=== PATIENT | male | born 1945 | race Caucasian/White ===

== ENCOUNTER → 2016-11-17 | Outpatient (CLI) | payer MEDICARE | END | disposition home or self-care (01) | LOC: LABWHC1 09:07 | PROVIDERS: ATTEND Internal Medicine Cardiovascular Disease | DX: I25.10 Atherosclerotic heart disease of native coronary artery without angina pectoris (principal) | CPT/HCPCS: 36415; 83704 ==

== ENCOUNTER 2018-12-24 10:44 | Day surgery (SDC) | payer MEDICARE ==
[~2018-12-24 10:44] MED LIST: SODIUM CHLORIDE 0.9% 1,000 ML IV SCH
[2018-12-24 12:01] LABS: Basophils % (A) 1 %; Eosinophils # (A) 0.3 k/uL (0-0.7); Eosinophils % (A) 3 %; HCT 39.5 % (39.0-53.0); HGB 13.1 gm/dL (13.0-17.5); Lymphocytes # (A) 1.4 k/uL (1.0-4.8); Lymphocytes % (A) 19 %; MCH 29.6 pg (25.0-35.0); MCHC 33.3 g/dL (31.0-37.0); Mean Platelet Volume 7.7; Monocytes # (A) 0.4 k/uL (0-1.0); Monocytes % (A) 6 %; Neutrophils % (A) 68 %; Platelet Count 246 k/uL (150-450); RBC 4.44 m/uL (4.30-5.90); RDW 13.3 % (11.5-15.5); WBC 7.3 k/uL (3.8-10.6)
[2018-12-24 12:18] LABS: Calcium 9.4 mg/dL (8.4-10.2); Potassium 4.4 mmol/L (3.5-5.1)
[2018-12-24] MEDS ORDERED: LIDOCAINE 1% INJ 10MG/ML (20 ML MDV) SQ ONE (13:35)
[2018-12-24] MEDS ORDERED: IV FLUID CONTINUATION 1,000 ML IV ONE (13:37)
[2018-12-24] MEDS ORDERED: IOPAMIDOL-370 100ML BTL INJ ONE (13:55)
[2018-12-24] MEDS ORDERED: hydrALAZINE HCL 20 MG/ML 1 ML VIAL ONE (14:13)
[2018-12-24] MEDS ORDERED: SODIUM CHLORIDE 0.9% 1,000 ML IV SCH (14:15)
[2018-12-24] MEDS ORDERED: METOPROLOL TARTRATE 50 MG TAB PO SCH (14:20)
[2018-12-24] MEDS ORDERED: hydrALAZINE HCL 20 MG/ML 1 ML VIAL IVP STA (14:23)
[2018-12-24] MEDS ORDERED: METOPROLOL TARTRATE 25 MG TAB PO SCH (14:30)
--- NOTE | 2018-12-24 14:37 | IR ---
EXAMINATION TYPE: IR angio aortic arch DATE OF EXAM: 12/24/2018 COMPARISON: NONE HISTORY: Carotid stenosis Fluoroscopy support supplied to the referring clinician. See dictated report from vascular surgery, 7.4 minutes fluoroscopy time, 92 intraoperative C-arm images document the procedure
[2018-12-24 16:33] VITALS: RESP 18
[2018-12-24 16:34] VITALS: BMI 23.1
--- NOTE | 2018-12-24 18:40 | LTR ---
December 24, 2018 To: Dr. Kaylah Harman Re: Jg Carrillo (1945) Dear Dr. Harman, Mr. Jg Carrillo underwent an aortic arch and carotid angiogram that revealed critical disease involving the left internal carotid artery. The patient will be scheduled for carotid revascularization, likely with stenting, in the next few weeks. Thank you for allowing us to participate in his care, and please do not hesitate to call if you have any questions or concerns. Sincerely, Gonzales Mai MD MMBRIANA / ALIDAN: [id number] /
[2018-12-24 19:57] VITALS: TEMP 98.4
[2018-12-24 20:08] VITALS: BP 128/83; PULSE 65
--- NOTE | 2018-12-24 20:55 | AN ---
ANGIOGRAPHY REPORT DATE OF SERVICE: 12/24/2018 PERFORMING PHYSICIAN: Gonzales Mai MD, metal base blocker. PROCEDURES PERFORMED: 1. Aortic arch angiogram. 2. Selective bilateral carotid angiogram. INDICATION: This is a pleasant 73-year-old gentleman who sees Dr. Janet Lay in the office as an outpatient with a known history of coronary artery disease, hypertension and dyslipidemia who underwent recently a carotid duplex study which revealed severe disease involving the left internal carotid artery. He was brought today to undergo a carotid angiogram with possible left carotid stenting. APPROACH: Right common femoral artery. COMPLICATIONS: None. LEVEL OF SEDATION: The patient was not given any sedation. PROCEDURE DESCRIPTION: After obtaining informed consent, the patient was brought to the cardiac labor union business representative. The right common femoral artery was cannulated using micropuncture technique. The micropuncture wire passed easily. Then I placed a 5-Saudi Arabian sheath in the right common femoral artery. After that I did an aortic arch angiogram using 5-Saudi Arabian pigtail catheter. Then I did selective bilateral carotid angiogram using JB2 catheters. The procedure was completed without any complication. AORTIC ARCH ANGIOGRAM: The aortic arch angiogram was performed in the [place] projection using a power injection. The aortic arch is a true bovine arch. The arch appeared to have mild disease only. BILATERAL CAROTID ANGIOGRAM: 1. Right carotid system. The right common carotid artery appeared to be angiographically normal. The right internal carotid artery appeared to have mild disease only. The right external carotid artery appeared to have mild disease only. 2. Left carotid system. The left common carotid artery distally just by the bifurcation into right internal and right external has eccentric lesion that appeared to be in the range of 95%. That is involving the left internal carotid artery. CONCLUSION: 1. True bovine arch. 2. Critical disease involving the left internal carotid artery and involving the left common carotid artery as well. POST-PROCEDURE MANAGEMENT: 1. IV hydration. 2. The patient will be scheduled to undergo possible left carotid stenting. 3. Follow up with the patient. MMODL / IJN: [id number] /
[2018-12-24] MEDS ORDERED: ATORVASTATIN 40 MG TAB PO SCH (21:00)
[2018-12-24] MEDS ORDERED: FENOFIBRATE 160 MG TAB PO SCH (21:00)
[2018-12-25] MEDS ORDERED: MULTIVITAMINS, THERA 1 EACH TAB PO SCH (12:00)
== END 2018-12-24 20:08 | disposition home or self-care (01) ==
LOC: CATHCVL 10:44 → 1SOBS 14:30 → CATHCVL 20:08
PROVIDERS: ATTEND Internal Medicine Interventional Cardiology
DX: I65.23 Occlusion and stenosis of bilateral carotid arteries (principal); I25.10 Atherosclerotic heart disease of native coronary artery without angina pectoris; I10 Essential (primary) hypertension; Z95.1 Presence of aortocoronary bypass graft; E78.5 Hyperlipidemia, unspecified; Z87.891 Personal history of nicotine dependence; Z79.82 Long term (current) use of aspirin; Z79.899 Other long term (current) drug therapy
CPT/HCPCS: 36222; 80048; 85025; C1769 ×3; C1894; J0360; J2001; Q9967

== ENCOUNTER → 2019-01-28 | Outpatient (CLI) | payer MEDICARE ==
[2019-01-28 10:50] LABS: HCT 42.6 % (39.0-53.0); HGB 13.7 gm/dL (13.0-17.5); MCH 28.5 pg (25.0-35.0); MCHC 32.2 g/dL (31.0-37.0); MCV 88.6 fL (80.0-100.0); Platelet Count 284 k/uL (150-450); RBC 4.81 m/uL (4.30-5.90); RDW 12.7 % (11.5-15.5); WBC 5.8 k/uL (3.8-10.6)
[2019-01-28 11:05] LABS: Potassium 5.2 mmol/L (3.5-5.1)
== END | disposition home or self-care (01) ==
LOC: LABPAT 10:32
PROVIDERS: ATTEND Internal Medicine Interventional Cardiology
DX: Z01.812 Encounter for preprocedural laboratory examination (principal); I10 Essential (primary) hypertension; I25.10 Atherosclerotic heart disease of native coronary artery without angina pectoris; I65.22 Occlusion and stenosis of left carotid artery
CPT/HCPCS: 36415; 80051; 82565; 84520; 85027

== ENCOUNTER 2019-02-11 06:32 | Inpatient (IN) | payer MEDICARE ==
[2019-02-03 13:36] VITALS: BMI 23.2
[~2019-02-11 06:32] MED LIST changes: +ALPRAZolam 0.25 MG TAB PO PRN; +ALPRAZolam 0.5 MG TAB PO PRN; +ASPIRIN 325 MG TAB PO STA; +CLOPIDOGREL 75 MG TAB PO STA; +NITROGLYCERIN SL TABS 0.4 MG TAB SUBLINGUAL PRN; -SODIUM CHLORIDE 0.9% 1,000 ML IV SCH; +SODIUM CHLORIDE 0.9% 1,000 ML in EMPTY BAG 1 BAG IV ONE
[2019-02-11 07:18] LABS: Basophils # (A) 0.1 k/uL (0-0.2); Basophils % (A) 1 %; Eosinophils # (A) 0.4 k/uL (0-0.7); Eosinophils % (A) 7 %; HCT 37.6 % (39.0-53.0); HGB 12.6 gm/dL (13.0-17.5); Lymphocytes # (A) 1.1 k/uL (1.0-4.8); Lymphocytes % (A) 21 %; MCH 28.8 pg (25.0-35.0); MCHC 33.5 g/dL (31.0-37.0); MCV 85.7 fL (80.0-100.0); Mean Platelet Volume 7.8; Monocytes # (A) 0.4 k/uL (0-1.0); Monocytes % (A) 7 %; Neutrophils # (A) 3.2 k/uL (1.3-7.7); Neutrophils % (A) 61 %; Platelet Count 312 k/uL (150-450); RBC 4.39 m/uL (4.30-5.90); RDW 13.7 % (11.5-15.5); WBC 5.3 k/uL (3.8-10.6)
[2019-02-11 07:25] LABS: Calcium 9.2 mg/dL (8.4-10.2); Potassium 4.2 mmol/L (3.5-5.1)
[2019-02-11] MEDS ORDERED: HEPARIN SODIUM 1,000 UN/ML (10ML VL) IV ONE (09:36)
[2019-02-11] MEDS ORDERED: CLOPIDOGREL 75 MG TAB PO ONE (10:19)
[2019-02-11] MEDS ORDERED: IOPAMIDOL-370 100ML BTL INJ ONE (10:19)
[2019-02-11] MEDS ORDERED: ATROPINE SULFATE 0.1 MG/ML 10ML SYRINGE IV PRN (10:30)
[2019-02-11] MEDS ORDERED: SODIUM CHLORIDE 0.9% 1,000 ML IV SCH (10:30)
[2019-02-11] MEDS ORDERED: MAG HYDROX/AL HYDROX/SIMETH 30 ML CUP PO PRN (10:30)
[2019-02-11] MEDS ORDERED: RX INFO: IV CONTRAST WAS GIVEN 1 EACH MISC MISCELLANE PRN (10:30)
--- NOTE | 2019-02-11 10:59 | LTR ---
February 11, 2019 Re: Jg Carrillo Dear Dr. Harman: Mr. Jg Carrillo underwent successful stenting of the left internal carotid artery with good angiographic results and without any complication. I want to thank you for allowing me to participate in his care and please do not hesitate to call if you have any questions or concerns. Sincerely, MD TIANA Hallman / SYL: [id number] /
[2019-02-11 11:14] LABS: Glucose,Whole Blood 93 mg/dL (75-99)
--- NOTE | 2019-02-11 11:20 | AN ---
ANGIOGRAPHY REPORT DATE OF SERVICE: February 11, 2019. PERFORMING PHYSICIAN: Gonzales Mai MD, advanced manufacturing technician. PROCEDURE PERFORMED: 1. Intracranial angiogram. 2. Selective left common and left internal carotid artery angiogram. 3. Successful stenting of the left internal carotid artery using 10-8 x 30 mm Xact stent with adjunctive use of distal protection device with a filter. 4. Selective right common femoral artery angiogram. INDICATION: This is a 73-year-old gentleman with history of coronary artery disease and prior coronary artery bypass grafting as well as hypertension and dyslipidemia who sees Dr. Janet Lay in the office as an outpatient who underwent recently a carotid duplex study and that revealed critical disease involving the left internal carotid artery. The velocity as well as the ratio were both elevated. Subsequently he underwent an aortic arch and bilateral carotid angiogram and that revealed critical disease involving the left internal carotid artery with eccentric calcified plaque but very focal. Because of that, percutaneous revascularization of the left internal carotid artery was advised. APPROACH: Right common femoral artery. COMPLICATION: None. LEVEL OF SEDATION: Level of sedation was not done during the procedure. The case length was 62 minutes. PROCEDURE DESCRIPTION: After obtaining an informed consent, the patient was brought to cardiac laborer livestock. The right common femoral artery was cannulated using micropuncture technique, the micropuncture wire passed easily then I placed a 90 cm 6-Liberian sheath in the right common femoral artery and the sheath was advanced all the way to the ascending aorta. At that point, anticoagulation was initiated using heparin and the patient was given 8000 units of heparin at the beginning of the procedure. Subsequently, I did select the left common carotid artery using catheter. After that, I did wire the left carotid using 0.035 [place] Advantage wire. I attempted advancing the sheath over the but the will not want to cross from the innominate to the left common carotid artery. At that point, I pulled the out and advanced the dilator of the sheath and with that I was unable to advance the sheath to the left common carotid artery. At that point, I did exchange the dilator of the sheath with JB2 catheter and with that I was able to advance the sheath over the JB2 to the proximal left common carotid artery. At that point, I did intracranial angiogram and selective left common and left internal carotid artery angiogram. At that point, I did prep for the left internal carotid artery stenting. I did open initially the retrieval of the filter, subsequently the predilatation balloon, then the stent, then the postdilatation balloon, then the filter as well. I deployed 4-7 mm filter in the internal carotid artery on the left side distal to the lesion. The filter was deployed under fluoroscopy guidance. After that, I did predilatation of the lesion using 4 mm balloon subsequently I deployed 8-10 x 30 mm Xact stent where the stent again was positioned under fluoroscopy guidance and deployed under fluoroscopy guidance. I post dilated the stent using 5 mm balloon. Subsequently the angiogram showed good angiographic results. At that point, I did retrieve the filter and I did selective intracranial angiogram and selective left common and left internal carotid artery angiogram which showed an excellent angiographic results and the procedure was completed without any complication. After that I did exchange my long sheath into short sheath using an 0.035 [place] Advantage wire. Subsequently I did take selective left right common femoral artery angiogram which revealed critical plaque involving the right common artery just above the bifurcation into the SFA and profunda. We decided to do manual sheath pull and standard care. The procedure was completed without any complication. POSTPROCEDURE MANAGEMENT: 1. Dual anti-platelet therapy. 2. Standard groin care. 3. Assess for symptoms in the lower extremities and if the patient is symptomatic, he might benefit from revascularization of the right common femoral artery. MMBRIANA / ALIDAN: [id number] /
--- NOTE | 2019-02-11 12:10 | IR ---
Fluoroscopy HISTORY: Left carotid stenosis 19.4 minutes fluoroscopy time supplied to the referring clinician. 366 intraoperative C-arm images d ocument the procedure. See dictated report from cardiology.
[2019-02-11] MEDS ORDERED: FENOFIBRATE 160 MG TAB PO SCH (21:00)
[2019-02-11] MEDS ORDERED: ATORVASTATIN 40 MG TAB PO SCH ×2 (21:00)
[2019-02-12 05:09] LABS: Basophils % (A) 1 %; Eosinophils # (A) 0.3 k/uL (0-0.7); Eosinophils % (A) 4 %; HCT 34.3 % (39.0-53.0); HGB 11.6 gm/dL (13.0-17.5); Lymphocytes # (A) 1.2 k/uL (1.0-4.8); Lymphocytes % (A) 18 %; MCH 29.1 pg (25.0-35.0); MCHC 33.9 g/dL (31.0-37.0); MCV 85.8 fL (80.0-100.0); Mean Platelet Volume 7.9; Monocytes # (A) 0.5 k/uL (0-1.0); Monocytes % (A) 8 %; Neutrophils # (A) 4.5 k/uL (1.3-7.7); Neutrophils % (A) 67 %; Platelet Count 285 k/uL (150-450); RDW 13.8 % (11.5-15.5); WBC 6.7 k/uL (3.8-10.6)
[2019-02-12 05:42] LABS: Anion Gap 8 mmol/L; Blood Urea Nitrogen 15 mg/dL (9-20); Calcium 8.7 mg/dL (8.4-10.2); Carbon Dioxide 22 mmol/L (22-30); Chloride 110 mmol/L (98-107); Glucose 100 mg/dL (74-99); Potassium 4.3 mmol/L (3.5-5.1); Sodium 140 mmol/L (137-145)
[2019-02-12 08:05] VITALS: TEMP 98.4
--- NOTE | 2019-02-12 08:12 | DS ---
DISCHARGE SUMMARY ADMISSION DATE: February 11, 2019 DISCHARGE DATE: February 12, 2019 BRIEF HISTORY: This is a 73-year-old gentleman who was diagnosed recently with critical disease involving the left internal carotid artery was admitted to the hospital yesterday and underwent successful stenting of the left internal carotid artery using Xact stent with good angiographic results and without any complication. The procedure was performed from the right groin which is soft and nontender and without any bruises. He is going to be discharged on dual anti-platelet therapy including aspirin and Plavix as well as statin at 40 mg p.o. daily. I will follow up with the patient next week in the office. MMODL / IJN: [id number] /
[2019-02-12] MEDS ORDERED: ASPIRIN 325 MG TAB PO SCH ×2 (09:00)
[2019-02-12] MEDS ORDERED: CLOPIDOGREL 75 MG TAB PO SCH (10:30)
[2019-02-12 10:44] VITALS: BP 154/71
[2019-02-12 11:19] VITALS: PULSE 59; RESP 12
[2019-02-12] MEDS ORDERED: MULTIVITAMINS, THERA 1 EACH TAB PO SCH (12:00)
== END 2019-02-12 11:43 | disposition home or self-care (01) | DRG 36 ==
LOC: 2ORMAIN 06:32 → 2SICU 10:22
PROVIDERS: ADMIT Internal Medicine Interventional Cardiology; ATTEND Internal Medicine Interventional Cardiology
PROC: B3141ZZ Fluoroscopy of Left Common Carotid Artery using Low Osmolar Contrast (ICD-10-PCS; 2019-02-11)
PROC: B3171ZZ Fluoroscopy of Left Internal Carotid Artery using Low Osmolar Contrast (ICD-10-PCS; 2019-02-11)
PROC: B41F1ZZ Fluoroscopy of Right Lower Extremity Arteries using Low Osmolar Contrast (ICD-10-PCS; 2019-02-11)
PROC: 037L3DZ Dilation of Left Internal Carotid Artery with Intraluminal Device, Percutaneous Approach (ICD-10-PCS; principal; 2019-02-11 08:55)
DX: I65.22 Occlusion and stenosis of left carotid artery (principal); I25.10 Atherosclerotic heart disease of native coronary artery without angina pectoris; I10 Essential (primary) hypertension; E78.2 Mixed hyperlipidemia; R40.2143 Coma scale, eyes open, spontaneous, at hospital admission; R40.2363 Coma scale, best motor response, obeys commands, at hospital admission; R40.2253 Coma scale, best verbal response, oriented, at hospital admission; F17.210 Nicotine dependence, cigarettes, uncomplicated; Z71.6 Tobacco abuse counseling; Z79.82 Long term (current) use of aspirin; Z79.899 Other long term (current) drug therapy; Z95.1 Presence of aortocoronary bypass graft
CPT/HCPCS: 37215; 80048; 85025

== ENCOUNTER → 2019-06-02 | Outpatient (CLI) | payer MEDICARE ==
[2019-06-02 09:59] LABS: HCT 45.5 % (39.0-53.0); HGB 13.8 gm/dL (13.0-17.5); MCH 27.2 pg (25.0-35.0); MCHC 30.4 g/dL (31.0-37.0); MCV 89.7 fL (80.0-100.0); Mean Platelet Volume 7.5; Platelet Count 290 k/uL (150-450); RBC 5.08 m/uL (4.30-5.90); RDW 13.5 % (11.5-15.5); WBC 5.2 k/uL (3.8-10.6)
[2019-06-02 15:48] LABS: African American GFR (CKD) 86.8 (60.0-200.0); Anion Gap 5.7 mmol/L (4.00-12.00); Carbon Dioxide 28.3 mmol/L (21.6-31.8); Magnesium 1.9 mg/dL (1.5-2.4); Potassium 5.3 mmol/L (3.5-5.5)
== END | disposition home or self-care (01) ==
LOC: LABWHC1 09:15
PROVIDERS: ATTEND Internal Medicine Interventional Cardiology
DX: Z01.812 Encounter for preprocedural laboratory examination (principal); I70.211 Atherosclerosis of native arteries of extremities with intermittent claudication, right leg
CPT/HCPCS: 36415; 80051; 82565; 83735; 84520; 85027

== ENCOUNTER 2019-06-17 09:13 | Day surgery (SDC) | payer MEDICARE ==
[2019-06-11 13:11] VITALS: BMI 23.1
[~2019-06-17 09:13] MED LIST changes: -ALPRAZolam 0.25 MG TAB PO PRN; -ALPRAZolam 0.5 MG TAB PO PRN; -ASPIRIN 325 MG TAB PO STA; -CLOPIDOGREL 75 MG TAB PO STA; -NITROGLYCERIN SL TABS 0.4 MG TAB SUBLINGUAL PRN
[2019-06-17 09:40] VITALS: RESP 16; TEMP 98
[2019-06-17] MEDS ORDERED: SODIUM CHLORIDE 0.9% 1,000 ML IV ONE (09:42)
[2019-06-17] MEDS ORDERED: MIDAZOLAM (PF) 2 MG/2 ML VIAL IV ONE (12:53)
[2019-06-17] MEDS ORDERED: LIDOCAINE 1% INJ 10MG/ML (20 ML MDV) SQ ONE (13:03)
[2019-06-17] MEDS ORDERED: IOPAMIDOL-250 100ML BTL INTRAARTER ONE (13:15)
[2019-06-17] MEDS ORDERED: SODIUM CHLORIDE 0.9% 1,000 ML IV SCH (13:30)
[2019-06-17] MEDS ORDERED: hydrALAZINE HCL 20 MG/ML 1 ML VIAL IVP STA (14:03)
[2019-06-17] MEDS ORDERED: ENALAPRILAT 1.25 MG/ML 1 ML VIAL IVP STA (14:03)
[2019-06-17 18:32] VITALS: BP 133/52; PULSE 63
--- NOTE | 2019-06-18 01:08 | AN ---
ANGIOGRAPHY REPORT PROCEDURE PERFORMED: Aortogram with runoff DATE OF SERVICE: June 17, 2019 PERFORMING PHYSICIAN: Gonzales Mai MD, eyewear manufacturing supervisor. PROCEDURE PERFORMED: 1. An abdominal aortogram. 2. Bilateral lower extremities runoff. INDICATION: This is a very pleasant 73-year-old gentleman, sees Dr. Lay in the office as an outpatient who was experiencing right leg intermittent claudication. He underwent a carotid stenting recently from right groin approach and he was found to have critical disease involving the right common femoral artery. Because of that an aortogram with runoff was advised. APPROACH: Left common femoral artery. COMPLICATION: None. LEVEL OF SEDATION: Moderate with sedation length of 13 minutes. PROCEDURE DESCRIPTION: After obtaining an informed consent, the patient was brought to cardiac label printer. The left common femoral artery was cannulated using micropuncture technique, the micropuncture wire passed easily then I placed a 5-Angolan sheath. I did aortogram with runoff using 5-Angolan pigtail catheter which was initially placed at the level of the renal arteries then it was pulled into above the bifurcation of the aorta. The procedure was completed without any complication. SELECTIVE PERIPHERAL ANGIOGRAM: 1. The aorta appeared to have mild disease only and seems to be calcified. 2. Common iliac arteries both appeared to be calcified with mild disease only. 3. External iliac arteries both appeared to be angiographically normal. 4. Internal iliac arteries: Both are patent. 5. Common femoral artery: The right common femoral artery has a critical lesion appeared to be in the range of 99%. The left common femoral artery appeared to have disease in the range of 60% to 70%. 6. Profunda: Both are patent. 7. SFA: Both have mild to moderate disease. 8. Popliteal both appear to have mild disease. 9. Below the knee there are 3 vessels runoff below the knee bilaterally. CONCLUSION: Critical disease involving the right common iliac artery and intermediate to severe disease involving the left common femoral artery. POSTPROCEDURE MANAGEMENT: 1. Continue the current medical treatment. 2. Revascularization of the right common femoral artery. End of artery. 3. Revascularization of the right common femoral artery. MMODL / IJN: [id number] /
--- NOTE | 2019-06-18 14:43 | IR ---
EXAMINATION TYPE: IR angio abdominal w runoff DATE OF EXAM: 06/17/2019 CLINICAL HISTORY: Peripheral vascular disease. Right leg pain. TECHNIQUE: Fluoroscopy. COMPARISON: None. FINDINGS: Fluoroscopic guidance was provided during abdominal angiogram with runoff procedure perfor med by Dr. Mai. A total of 0.7 minutes of fluoroscopic time was utilized during the procedure and s everal cine runs are acquired. Images acquired show access via left groin with subsequent angiogram a nd runoff. Please refer to procedure note for further details as I was not present nor performed proc edure IMPRESSION: As Above.
== END 2019-06-17 19:00 | disposition home or self-care (01) ==
LOC: CATHCVL 09:13 → 1SOBS 15:06 → CATHCVL 19:00
PROVIDERS: ATTEND Internal Medicine Interventional Cardiology
DX: I70.211 Atherosclerosis of native arteries of extremities with intermittent claudication, right leg (principal); Z95.820 Peripheral vascular angioplasty status with implants and grafts; Z95.1 Presence of aortocoronary bypass graft; E78.5 Hyperlipidemia, unspecified; I10 Essential (primary) hypertension; Z72.0 Tobacco use; Z79.02 Long term (current) use of antithrombotics/antiplatelets; Z79.82 Long term (current) use of aspirin; Z79.899 Other long term (current) drug therapy
CPT/HCPCS: 36200; 75625; 75716; C1769 ×4; C1894; J2001; Q9966; J2250

== ENCOUNTER → 2020-12-12 | Outpatient (CLI) | payer MEDICARE ==
[2020-12-12 16:06] LABS: Chol/HDL Ratio 2.88; LDL Cholesterol,Calculated 91.8 mg/dL (0.0-131.0); VLDL Calculation 13.2 mg/dL (5.00-40.00)
== END | disposition home or self-care (01) ==
LOC: LABWHC1 09:12
PROVIDERS: ATTEND Internal Medicine Interventional Cardiology
DX: E78.2 Mixed hyperlipidemia (principal)
CPT/HCPCS: 36415; 80061; 84450; 84460

== ENCOUNTER → 2021-01-03 | Outpatient (CLI) | payer MEDICARE ==
[2021-01-03 15:32] LABS: HCT 42.4 % (39.6-50.0); HGB 13.2 g/dL (13.0-17.0); MCH 28.9 pg (27.0-32.0); MCHC 31.1 g/dL (32.0-37.0); MCV 92.8 fL (80.0-97.0); Mean Platelet Volume 10.6 fL (9.5-12.2); Platelet Count 344 X 10*3/uL (140-440); RBC 4.57 X 10*6/uL (4.40-5.60); WBC 6.22 X 10*3/uL (4.50-10.00)
[2021-01-03 18:02] LABS: African American GFR (CKD) 68.6 (60.0-200.0); Anion Gap 7.1 mmol/L (4.00-12.00); Carbon Dioxide 25.9 mmol/L (21.6-31.8); Non-African American GFR(CKD) 59.2 (60.0-200.0); Potassium 4.6 mmol/L (3.5-5.5)
== END | disposition home or self-care (01) ==
LOC: LABWHC1 08:39
PROVIDERS: ATTEND Internal Medicine Interventional Cardiology
DX: Z01.818 Encounter for other preprocedural examination (principal); I25.10 Atherosclerotic heart disease of native coronary artery without angina pectoris
CPT/HCPCS: 36415; 80051; 82565; 84520; 85027

== ENCOUNTER 2021-01-11 07:29 | Day surgery (SDC) | payer MEDICARE ==
[2021-01-06 10:03] VITALS: BMI 23.7
[~2021-01-11 07:29] MED LIST changes: +ALPRAZolam 0.25 MG TAB PO PRN; +ALPRAZolam 0.5 MG TAB PO PRN; +ASPIRIN 325 MG TAB PO ONE; +ATORVASTATIN 80 MG TAB PO ONE; +NITROGLYCERIN SL TABS 0.4 MG TAB SUBLINGUAL PRN
[2021-01-11] MEDS ORDERED: CLOPIDOGREL 75 MG TAB ONE (07:47)
[2021-01-11] MEDS ORDERED: ISOSORBIDE MONONITRATE ER 30 MG TAB.ER.24H PO STA (07:57)
[2021-01-11] MEDS ORDERED: METOPROLOL TARTRATE 25 MG TAB PO STA (07:57)
[2021-01-11] MEDS ORDERED: SODIUM CHLORIDE 0.9% 1,000 ML IV ONE (08:08)
[2021-01-11] MEDS ORDERED: LIDOCAINE 1% INJ 10MG/ML (20 ML MDV) SQ ONE (08:30)
[2021-01-11] MEDS: MIDAZOLAM 2 MG/2 ML VIAL IV ONE ×2 (08:31→08:35)
[2021-01-11] MEDS: fentaNYL (PF) 50 MCG/ML 2 ML AMP IV ONE ×2 (08:31→08:57)
[2021-01-11] MEDS ORDERED: IOPAMIDOL-370 125ML BTL INJ ONE (09:00)
[2021-01-11] MEDS ORDERED: RX INFO: IV CONTRAST WAS GIVEN 1 EACH MISC MISCELLANE PRN (09:20)
[2021-01-11] MEDS ORDERED: SODIUM CHLORIDE 0.9% 1,000 ML IV SCH (09:30)
--- NOTE | 2021-01-11 09:47 | CC ---
CARDIAC CATHETERIZATION REPORT DATE OF SERVICE: January 11, 2021 PERFORMING PHYSICIAN: Gonzales Mai MD. PROCEDURE PERFORMED: 1. Selective left and right coronary angiogram. 2. ACOSTA to LAD angiogram. 3. SVG to diagonal angiogram. 4. SVG to left circumflex angiogram. 5. SVG to RCA angiogram. 6. Left heart catheterization. 7. Selective left common femoral artery angiogram. INDICATION: This is a very pleasant 75-year-old gentleman with coronary artery disease and prior coronary artery bypass grafting in 1995, where at that point, he received 4 bypasses as well as carotid disease and prior carotid revascularization as well as peripheral arterial disease of the lower extremities was seen in the office recently for symptoms of chest discomfort concerning for angina. Because of that, a heart catheterization was advised. APPROACH: Left common femoral artery. COMPLICATION: None. LEVEL OF SEDATION: Moderate with a sedation length of 27 minutes. PROCEDURE DESCRIPTION: After obtaining an informed consent, the patient was brought to the cardiac microbiological lab technician. The left common femoral artery was cannulated using micropuncture technique, the micropuncture wire passed easily then I placed a 6-Colombian sheath at the left common femoral artery. Selective left and right coronary angiogram performed using JL4 and JR4 catheters. ACOSTA to LAD angiogram as well as SVG to diagonal and SVG to left circumflex angiogram performed using the JR4 catheter. SVG to RCA angiogram was performed using a multi- purpose catheter. Left heart catheterization was performed using 5-Colombian pigtail catheter. After that I did selective left common femoral artery angiogram. The procedure was completed without any complication. SELECTIVE CORONARY ANGIOGRAM: 1. The left main is a large caliber vessel. The left main has a lesion appeared to be in the range of 50%. It bifurcates into left circumflex and LAD. Please note that the left main is extremely calcified. 2. The left circumflex is occluded in the proximal portion. 3. The LAD: The proximal LAD right after the takeoff from the left main has a critical lesion appeared to be in the range of 80%. After that, the LAD is 100% occluded. The LAD gives rise into multiple diagonal branches. 4. The RCA is occluded 100% in the proximal portion. CORONARY BYPASSES ANGIOGRAM: 1. ACOSTA to LAD is patent. The LAD distal to the ACOSTA anastomosis has a lesion appeared to be in the range of 50% to 60%. 2. SVG to diagonal is occluded. 3. SVG to LCX is occluded. 4. SVG to RCA is occluded. HEMODYNAMICS: The LVEDP was 11 mmHg without significant gradient across the aortic valve. CONCLUSION: 1. Extremely calcified left and right coronary systems. 2. Severe triple-vessel coronary artery disease. 3. Patent ACOSTA to LAD. The LAD distal to ACOSTA anastomosis has a lesion appeared to be in the range of 60% and the LAD is extremely calcified. 4. Occluded SVG to diagonal. 5. Occluded SVG to left circumflex. 6. Occluded SVG to RCA. 7. Normal LVEDP. POSTPROCEDURE MANAGEMENT: 1. Giving the above anatomy, I advised maximized medical treatment to control the symptoms of chest discomfort. 2. If the patient continues to be symptomatic in spite of maximized medical treatment, he might benefit from PCI of protected left main and PCI of the proximal LAD, would definitely use adjunctive atherectomy because the artery is extremely calcified. MMODL / IJN: [id number] /
[2021-01-11 10:13] VITALS: RESP 18
[2021-01-11 11:30] VITALS: TEMP 97.6
[2021-01-11 15:18] VITALS: BP 155/69; PULSE 63
== END 2021-01-11 16:05 | disposition home or self-care (01) ==
LOC: CATHCVL 07:29
PROVIDERS: ATTEND Internal Medicine Interventional Cardiology
DX: I25.110 Atherosclerotic heart disease of native coronary artery with unstable angina pectoris (principal); I25.710 Atherosclerosis of autologous vein coronary artery bypass graft(s) with unstable angina pectoris; I25.82 Chronic total occlusion of coronary artery; I65.22 Occlusion and stenosis of left carotid artery; E78.5 Hyperlipidemia, unspecified; I10 Essential (primary) hypertension; E78.00 Pure hypercholesterolemia, unspecified; Z72.0 Tobacco use; Z95.820 Peripheral vascular angioplasty status with implants and grafts; I73.9 Peripheral vascular disease, unspecified; Z79.02 Long term (current) use of antithrombotics/antiplatelets; Z79.82 Long term (current) use of aspirin; Z79.899 Other long term (current) drug therapy
CPT/HCPCS: 93459; C1894; C1769 ×2; J2250; J2001; J3010; Q9967

== ENCOUNTER → 2022-04-24 | Outpatient (CLI) | payer MEDICARE ==
[2022-04-24 14:38] LABS: African American GFR (CKD) 69.6 (60.0-200.0); BUN/Creat Ratio 13.98 Ratio (12.00-20.00); Blood Urea Nitrogen 16.5 mg/dL (9.0-27.0); Calcium 9.2 mg/dL (8.7-10.3); Carbon Dioxide 25.1 mmol/L (20.0-27.5); HCT 40.3 % (39.6-50.0); HGB 12.5 g/dL (13.0-17.0); MCH 28.5 pg (27.0-32.0); Mean Platelet Volume 11.1 fL (9.5-12.2); NRBC Per 100 WBC 0 /100 WBCS (0.0-0.0); Platelet Count 275 X 10*3/uL (140-440); Potassium 4.4 mmol/L (3.5-5.5); RBC 4.38 X 10*6/uL (4.40-5.60); RDW 13.2 % (11.5-14.5)
== END | disposition home or self-care (01) ==
LOC: LABPAT 09:39
PROVIDERS: ATTEND Internal Medicine Interventional Cardiology
DX: Z01.812 Encounter for preprocedural laboratory examination (principal); I25.10 Atherosclerotic heart disease of native coronary artery without angina pectoris
CPT/HCPCS: 80048; 85027

== ENCOUNTER 2022-04-30 06:25 | Day surgery (SDC) | payer MEDICARE ==
[2022-04-27 08:55] VITALS: BMI 24.3
[~2022-04-30 06:25] MED LIST changes: -ASPIRIN 325 MG TAB PO ONE; +ASPIRIN 325 MG TAB PO STA; -ATORVASTATIN 80 MG TAB PO ONE; +ATORVASTATIN 80 MG TAB PO STA; +HEPARIN SODIUM,PORCINE 10,000 UNIT in SODIUM CHLORIDE 0.9% 1,000 ML IRRIGATION PRN; +HEPARIN SODIUM,PORCINE 2,500 UNIT in SODIUM CHLORIDE 0.9% 250 ML IRRIGATION PRN; -SODIUM CHLORIDE 0.9% 1,000 ML in EMPTY BAG 1 BAG IV ONE; +SODIUM CHLORIDE 0.9% 1,000 ML in EMPTY BAG 1 BAG IV SCH
[2022-04-30] MEDS ORDERED: SODIUM CHLORIDE 0.9% 1,000 ML IV ONE (06:54)
[2022-04-30 07:12] VITALS: TEMP 98.1
[2022-04-30] MEDS ORDERED: VERAPAMIL 2.5 MG/ML 2 ML AMP ONE (07:18)
[2022-04-30] MEDS ORDERED: MIDAZOLAM 2 MG/2 ML VIAL IV ONE (08:37)
[2022-04-30] MEDS ORDERED: LIDOCAINE 1% INJ 10MG/ML (30 ML VIAL-PF) SQ ONE (08:39)
[2022-04-30] MEDS ORDERED: IOPAMIDOL-370 125ML BTL INJ ONE (08:55)
[2022-04-30] MEDS ORDERED: RX INFO: IV CONTRAST WAS GIVEN 1 EACH MISC MISCELLANE PRN (09:08)
--- NOTE | 2022-04-30 09:14 | P.PCN ---
Date of Procedure: 04/30/22 Operative Findings: CARDIAC CATHETERIZATION PERFORMING PHYSICIAN: Gonzales Mai MD, RPVI PROCEDURE PERFORMED: 1. Selective right and left coronary angiogram 2. Left heart catheterization INDICATION: This is a 76-year-old gentleman with coronary artery disease and prior CABG was experiencing symptoms of chest discomfort concerning for angina. COMPLICATION: none APPROACH: Right common femoral artery LEVEL OF SEDATION: moderate with a sedation length of 20 minutes PROCEDURE DESCRIPTION: After obtaining an informed consent, the patient was brought to cardiac laborer heading. Local anesthesia was performed using lidocaine subcutaneously. The right common femoral artery was cannulated using Seldinger technique, the guidewire passed easily, following that we advanced a 6 American sheath dilator assembly, the wire and dilator were removed and sheath was flushed. Selective right and left coronary angiogram using a 6-American JR4 and JL catheters. The ACOSTA into LAD angiogram was performed using JR4 catheter Following that we did left heart catheterization using 6-American pigtail catheter. The procedure was completed there was no complication. SELECTIVE CORONARY ANGIOGRAM: The right coronary artery: is extremely calcified and occluded by the ostium Left main: has an ostial lesion appeared to be in the range of 60%. The left circumflex: is calcified and seems to be subtotally occluded proximally The left anterior descending artery: the proximal LAD has a critical lesion appeared to be in the range of 80-90%. The mid LAD is occluded. The LAD gives rises into a large diagonal branch. The ACOSTA to LAD is patent. The LAD distal the ACOSTA anastomosis has a lesion appeared to be in the range of 50-60% HEMODYNAMICS: the LVEDP was about 15 mmHg CONCLUSION: 1. critical disease involving the proximal LAD. The mid LAD is the LAD occluded. The ACOSTA to LAD is patent with 50% disease involving the LAD distal to anastomosis 2. severe disease involving the LCx 3. occluded right coronary artery POSTPROCEDURE MANAGEMENT: the patient stated that lately his chest discomfort has been better and he is able to pace himself. With that being stated and with the and change in anatomy I advise conservative medical approach at this point.
[2022-04-30] MEDS ORDERED: SODIUM CHLORIDE 0.9% 1,000 ML IV SCH (09:15)
[2022-04-30 11:02] VITALS: RESP 16
[2022-04-30 13:17] VITALS: BP 146/73; PULSE 59
== END 2022-04-30 14:39 | disposition home or self-care (01) ==
LOC: CATHCVL 06:25
PROVIDERS: ATTEND Internal Medicine Interventional Cardiology
DX: I25.10 Atherosclerotic heart disease of native coronary artery without angina pectoris (principal); Z20.822 Contact with and (suspected) exposure to COVID-19
CPT/HCPCS: 93459; 87635; C1769; C1894; J2250; J2001; Q9967

== ENCOUNTER 2024-11-20 06:11 | Day surgery (SDC) | payer MEDICARE ==
[2024-11-18 10:13] VITALS: BMI 24.3
[2024-11-20] MEDS: MIDAZOLAM 2 MG/2 ML VIAL IVP ONE ×2 (05:48→07:44)
[~2024-11-20 06:11] MED LIST changes: -ATORVASTATIN 80 MG TAB PO STA; -HEPARIN SODIUM,PORCINE 10,000 UNIT in SODIUM CHLORIDE 0.9% 1,000 ML IRRIGATION PRN; -HEPARIN SODIUM,PORCINE 2,500 UNIT in SODIUM CHLORIDE 0.9% 250 ML IRRIGATION PRN; -SODIUM CHLORIDE 0.9% 1,000 ML in EMPTY BAG 1 BAG IV SCH
[2024-11-20] MEDS: SODIUM CHLORIDE 0.9% 1,000 ML in EMPTY BAG 1 BAG IV SCH (06:11)
[2024-11-20] MEDS: IV FLUID CONTINUATION 1,000 ML IV ONE ×2 (06:11→06:35)
[2024-11-20 06:52] VITALS: RESP 16; TEMP 98.3
[2024-11-20 06:57] LABS: Basophils % (A) 1 %; Eosinophils # (A) 0.3 k/uL (0-0.7); Eosinophils % (A) 4 %; HCT 38.9 % (39.0-53.0); HGB 12.8 gm/dL (13.0-17.5); Lymphocytes # (A) 1.2 k/uL (1.0-4.8); Lymphocytes % (A) 17 %; MCH 30.2 pg (25.0-35.0); MCHC 32.9 g/dL (31.0-37.0); Monocytes # (A) 0.5 k/uL (0-1.0); Monocytes % (A) 7 %; Neutrophils % (A) 69 %; Platelet Count 298 k/uL (150-450); RBC 4.23 m/uL (4.30-5.90); RDW 13.5 % (11.5-15.5); WBC 7.2 k/uL (3.8-10.6)
[2024-11-20 07:09] LABS: African American GFR (CKD) 72 (>60 ml/min/1.73 sqM); Anion Gap 8 mmol/L; Blood Urea Nitrogen 21 mg/dL (9-20); Calcium 9.3 mg/dL (8.4-10.2); Carbon Dioxide 25 mmol/L (22-30); Chloride 105 mmol/L (98-107); Glucose 110 mg/dL (74-99); Non-African American GFR(CKD) 62 (>60 ml/min/1.73 sqM); Potassium 4.2 mmol/L (3.5-5.1); Sodium 138 mmol/L (137-145)
[2024-11-20] MEDS: LIDOCAINE 1% INJ 10MG/ML (20 ML MDV) SQ ONE (07:43)
[2024-11-20] MEDS: VERAPAMIL SYRINGE (5 MG/10 ML) INTRAARTER ONE (07:44)
[2024-11-20] MEDS: HEPARIN SODIUM 1,000 UN/ML (10ML VL) IVP ONE (07:49)
[2024-11-20] MEDS: IOPAMIDOL-370 100ML BTL INJ ONE ×2 (08:05→08:56)
[2024-11-20] MEDS: TICAGRELOR 90 MG TAB PO ONE (08:31)
[2024-11-20] MEDS: HEPARIN SODIUM,PORCINE 10,000 UNIT in SODIUM CHLORIDE 0.9% 1,000 ML IRRIGATION ONE (08:56)
[2024-11-20] MEDS: HEPARIN SODIUM,PORCINE (1 ML) 2,500 UNIT in SODIUM CHLORIDE 0.9% 250 ML IRRIGATION ONE (08:57)
[2024-11-20] MEDS ORDERED: ATROPINE SULFATE 0.1 MG/ML 10ML SYRINGE IV PRN (08:58)
[2024-11-20] MEDS ORDERED: MAG HYDROX/AL HYDROX/SIMETH 30 ML CUP PO PRN (08:58)
[2024-11-20] MEDS ORDERED: ZOLPIDEM 5 MG TAB PO PRN (08:58)
[2024-11-20] MEDS ORDERED: NITROGLYCERIN SL TABS 0.4 MG TAB SUBLINGUAL PRN (08:58)
[2024-11-20] MEDS ORDERED: RX INFO: IV CONTRAST WAS GIVEN 1 EACH MISC MISCELLANE PRN (08:58)
[2024-11-20] MEDS ORDERED: RANOLAZINE 1000 MG PO SCH (09:00)
[2024-11-20] MEDS ORDERED: TICAGRELOR 90 MG TAB PO SCH (09:00)
[2024-11-20] MEDS ORDERED: SODIUM CHLORIDE 0.9% 1,000 ML in EMPTY BAG 1 BAG IV SCH (09:00)
[2024-11-20] MEDS ORDERED: ISOSORBIDE MONONITRATE ER 60 MG TAB.ER.24H PO SCH (09:00)
[2024-11-20] MEDS ORDERED: amLODIPine 2.5 MG TAB PO SCH (12:30)
[2024-11-20] MEDS ORDERED: CLOPIDOGREL 75 MG TAB PO SCH (12:30)
[2024-11-20 13:32] VITALS: BP 162/78; PULSE 72
[2024-11-20] MEDS ORDERED: METOPROLOL TARTRATE 50 MG TAB PO SCH (17:30)
--- NOTE | 2024-11-20 18:51 | P.PCN ---
Date of Procedure: 11/20/24 Operative Findings: Cardiac catheterization and percutaneous coronary intervention Performing physician Gonzales Mai MD Procedure performed 1. Selective right and left coronary angiogram 2. ACOSTA to LAD angiogram 3. Successful stenting of the proximal LAD using 3.0 x 15 mm Xience KAYE with an excellent angiographic results 4. Successful stenting of the ostial and proximal left main coronary artery using 4.5 x 15 mm Xience KAYE with an excellent angiographic results 5. Adjunctive use of IVUS 6. Ultrasound-guided access of the left radial artery Indication Angina refractory to maximize medical treatment and this 79-year-old gentleman who has CAD with prior revascularization Approach Left radial artery Complication None Level of sedation Moderate with sedation length of 72 minutes Procedure description After obtaining an informed consent the patient was brought to the cardiac Cold Press Loader. The left radial artery was cannulated using micropuncture technique under ultrasound guidance the micropuncture wire passed easily then I placed a 6 Czech 11 cm sheath in the left radial artery. Subsequently I gave the patient 2 mg of verapamil intra-arterial and 6000's of heparin intravenous. Selective right coronary angiogram performed using JR4 catheter. Selective left coronary angiogram performed using JL 3.5 catheter. ACOSTA to LAD angiogram was performed using the JR4 catheter. After that I decided to intervene on the LAD and left main coronary artery. Anticoagulation was initiated using heparin as described above with continuous ACT monitoring. Subsequently I did engage the left main using JL 3.5 guiding catheter. I did wire the LAD from the get go using a whisper wire and a Runthrough wire. Intravascular ultrasound was performed and showed a diameter of the left main around 4.5 to 5 mm and the LAD about 2.75 to 3 mm but the IVUS catheter did not cross the lesion just proximal to the lesion was at that diameter. Predilatation of the LAD was performed using 2.5 mm NC balloon before I deployed a 3.0 x 15 mm Xience KAYE with stent was positioned under fluoroscopy guidance and deployed under fluoroscopy guidance. After that I did IVUS of the left main and that showed an area of stenosis exceeding 60% with calcified vessel. Dilatation was performed using 3.5 mm NC balloon before I deployed a 7.5 x 15 mm stent where the stent was positioned under fluoroscopy guidance and deployed under fluoroscopy guidance with the ostial was flared using the stent balloon. Final angiogram showed excellent angiographic results and the procedure was completed with no complication Selective coronary angiogram The RCA is known to be chronically occluded from before The left main was calcified with intermediate to severe lesion by the ostium The left circumflex is chronically occluded The LAD has a tight lesion in the proximal portion before it becomes chronically occluded in the midportion The ACOSTA to LAD is patent with intermediate to severe disease involving the LAD distal to ACOSTA anastomosis Conclusion EMPLOYEE RELATION MANAGER of the RCA EMPLOYEE RELATION MANAGER of the LCx Critical disease involving the left main and proximal LAD to diagonal branch with chronic total occlusion of the LAD after that Patent ACOSTA to LAD Successful PCI as described
[2024-11-20] MEDS ORDERED: ATORVASTATIN 80 MG TAB PO SCH (21:00)
[2024-11-20] MEDS ORDERED: EZETIMIBE 10 MG TAB PO SCH (21:00)
[2024-11-20] MEDS ORDERED: NON FORMULARY DRUG (Fenofibrate Nanocrystallized [Tricor] 145 MG Tablet) PO SCH (21:00)
[2024-11-21] MEDS ORDERED: ASPIRIN 325 MG TAB PO SCH (09:00)
== END 2024-11-20 13:50 | disposition home or self-care (01) ==
LOC: CATHCVL 06:11
PROVIDERS: ATTEND Internal Medicine Interventional Cardiology
DX: I25.119 Atherosclerotic heart disease of native coronary artery with unspecified angina pectoris (principal); I65.23 Occlusion and stenosis of bilateral carotid arteries; I73.9 Peripheral vascular disease, unspecified; I10 Essential (primary) hypertension; F17.210 Nicotine dependence, cigarettes, uncomplicated; Z79.82 Long term (current) use of aspirin; Z79.899 Other long term (current) drug therapy
CPT/HCPCS: 92978; 93455; 80048; 85025; C9600; C1769 ×4; C1887 ×3; C1894 ×2; C1753; C1874 ×2; C1725 ×3; J2250; J1644 ×3; J2003; Q9967